=== PATIENT | male | born 1990 | race Caucasian/White ===

== ENCOUNTER 2017-09-20 06:57 | Emergency (ER) | payer SELFPAY ==
[~2017-09-20] VITALS: Ht 185.4 cm; Wt 74.5 kg
[~2017-09-20 06:57] MED LIST: AMOXICILLIN/CLA1 TA1 PO; ASPIRIN 32325 MG/TAB PO; CEPHALEXIN500 M1 PO; FLAGYL500 MG PO; LORTAB 5/500 501 TAB PO; MOTRIN 200200 MG/TAB PO; NAPROSYN500 MG PO; PHENERGAN 25 TA25 MG PO; TUSS PO; TYLENOL W/COD1 UDTAB PO; VOLTAREN 75 DR75 MG PO; ZITHROMAX 250M250 MG PO
[2017-09-20 07:00] VITALS: BP 181/86
[2017-09-20 07:09] LABS: COLLECTION METHOD CLEAN CATCH
[2017-09-20 07:18] LABS: PH 5 (5-8); SQUAMOUS EPITHELIAL None Seen /hpf; URINE APPEARANCE Clear; URINE BACTERIA None Seen /hpf; URINE BILIRUBIN Negative (NEGATIVE); URINE BLOOD Negative (NEGATIVE); URINE COLOR Straw; URINE GLUCOSE Negative (NEGATIVE); URINE KETONE Negative (NEGATIVE); URINE LEUKOCYTE ESTERASE Negative (NEGATIVE); URINE NITRATE Negative (NEGATIVE); URINE PROTEIN(semi-quant) Negative (NEGATIVE); URINE RBC 0-2 /hpf; URINE UROBILINOGEN Negative (NEGATIVE)
[2017-09-20 07:27] LABS: TRICYCLIC ANTIDEPRESS URINE NEGATIVE
[2017-09-20 07:31] LABS: BASO # 0.1 (0.0-0.2); BASO % 0.4 % (0.0-2.0); EOS % 0.1 % (0-4.0); GRAN # 9.8 (1.4-6.5); GRAN % 84.7 % (42.2-75.2); HEMATOCRIT 42.4 % (42.0-52.0); HEMOGLOBIN 14.6 g/dl (13.5-18.0); LYMPH # 0.9 (1.2-3.4); LYMPH % 7.7 % (20.0-51.0); MEAN CELL VOLUME 89 fl (80.0-100.0); MEAN CORPUSCULAR HEMOGLOBIN 31 pg (27.0-31.0); MEAN CORPUSCULAR HGB CONC 34 g/dl (33.0-37.0); MEAN PLATELET VOLUME 10.3 fl (7.4-10.4); MONO # 0.8 (0.1-0.6); MONO % 6.8 % (1.7-9.3); PLATELET COUNT 361 K/mm3 (130-400); RED BLOOD COUNT 4.79 M/mm3 (4.20-5.60); REDCELL DISTRIBUTION WIDTH-CV 11.6 % (11.5-14.5)
[2017-09-20 07:40] LABS: ALANINE AMINOTRANSFERASE 26 U/L (21-72); ALBUMIN 4.6 gm/dL (3.5-5.0); ALKALINE PHOSPHATASE 77 U/L (50-136); ANION GAP 15 mmol/L (7-16); AST,SGOT 21 U/L (15-37); BILIRUBIN,TOTAL 0.3 mg/dL (0.0-1.0); BLOOD UREA NITROGEN 6 mg/dL (9-20); CALCIUM 9.1 mg/dL (8.4-10.2); CARBON DIOXIDE 27 mmol/L (22-30); CHLORIDE 100 mmol/L (98-107); CREATININE, serum 0.75 mg/dL (0.66-1.25); GLUCOSE 127 mg/dL (74-106); POTASSIUM 3.4 mmol/L (3.4-5.0); SODIUM 141 mmol/L (137-145); TOTAL PROTEIN 8.2 gm/dL (6.4-8.2)
[2017-09-20 07:44] LABS: ACETAMINOPHEN < 10 ug/mL (10-30); ALCOHOL(ethanol),MEDICAL < 10 mg/dL; SALICYLATE < 1.0 mg/dL
[2017-09-20 09:45] VITALS: PULSE 65; TEMP 97.8
== END 2017-09-20 09:28 | disposition home or self-care (01) ==
LOC: COL.ER 06:57
PROVIDERS: Emergency Medicine
DX: F15.10 Other stimulant abuse, uncomplicated (principal); F22 Delusional disorders; F17.210 Nicotine dependence, cigarettes, uncomplicated

== ENCOUNTER 2017-11-27 08:24 | Emergency (ER) | payer SELFPAY ==
[~2017-11-27] VITALS: Ht 185.4 cm; Wt 72.7 kg
[2017-11-27 08:26] VITALS: BP 136/70; TEMP 98.7
[2017-11-27 10:25] VITALS: PULSE 72
== END 2017-11-27 10:27 | disposition home or self-care (01) ==
LOC: COL.ER 08:24
DX: S52.601A Unspecified fracture of lower end of right ulna, initial encounter for closed fracture (principal); S80.12XA Contusion of left lower leg, initial encounter; F17.210 Nicotine dependence, cigarettes, uncomplicated; F12.90 Cannabis use, unspecified, uncomplicated; Y08.89XA Assault by other specified means, initial encounter; Y07.04 Female partner, perpetrator of maltreatment and neglect; Y92.009 Unspecified place in unspecified non-institutional (private) residence as the place of occurrence of the external cause
CPT/HCPCS: J1885; Q4050